=== PATIENT | female | born 1985 | race Caucasian/White ===

== ENCOUNTER 2019-02-21 08:57 | Emergency (ER) | payer MEDICAID ==
[~2019-02-21] VITALS: Ht 172.7 cm; Wt 64.0 kg
[2019-02-21 09:18] VITALS: Ht 172.7 cm; Wt 64.0 kg
[2019-02-21 10:03] LABS: BASOPHIL % 0.7 % (0-2); PLATELET COUNT 254 x10^3mcL (130-400)
[2019-02-21 10:04] LABS: RED CELL DISTRIBUTION WIDTH 16.6 % (11.5-14.5)
[2019-02-21 10:15] LABS: CALCIUM 8.3 mg/dL (8.5-10.1); CARBON DIOXIDE 29.2 mmol/L (21-32); CHLORIDE SERUM 100 mmol/L (98-107); CREATININE SERUM 0.6 mg/dL (0.6-1.0); GFR1 > 60 mL/min; GLUCOSE SERUM 93 mg/dL (74-106); POTASSIUM SERUM 3.9 mmol/L (3.5-5.1); SODIUM SERUM 140 mmol/L (136-145)
[2019-02-21 10:19] LABS: ALKALINE PHOSPHATASE 126 U/L (46-116); ALT/SGPT 81 U/L (14-59); AST/SGOT 91 U/L (15-37); BILIRUBIN TOTAL 0.9 mg/dL (0.20-1.00); MAGNESIUM 1.8 mg/dL (1.8-2.4)
[2019-02-21 10:32] LABS: TOTAL PROTEIN, SERUM 8.4 g/dL (6.4-8.2)
[2019-02-21 13:21] VITALS: BP 136/76
== END 2019-02-21 13:21 | disposition home or self-care (01) ==
LOC: ED 08:57
PROVIDERS: Emergency Medicine
DX: F10.239 Alcohol dependence with withdrawal, unspecified (principal); F41.9 Anxiety disorder, unspecified; G47.00 Insomnia, unspecified; R10.816 Epigastric abdominal tenderness; Y90.2 Blood alcohol level of 40-59 mg/100 ml
CPT/HCPCS: G0480; J2405; J3411; J3490; J7030; Q0177